=== PATIENT | male | born 1995 | race Caucasian/White ===

== ENCOUNTER 2019-12-30 03:12 | Emergency (ER) | payer OTHER ==
[~2019-12-30] VITALS: Ht 177.8 cm; Wt 81.6 kg
[2019-12-30] MEDS ORDERED: PREDNISONE20 M1 PO (04:16)
[2019-12-30] MEDS ORDERED: ULTRACET PO (04:16)
== END 2019-12-30 04:31 | disposition home or self-care (01) ==
LOC: ER 03:12
DX: S60.041A Contusion of right ring finger without damage to nail, initial encounter (principal); S60.221A Contusion of right hand, initial encounter; W22.8XXA Striking against or struck by other objects, initial encounter; Y93.89 Activity, other specified; Y92.89 Other specified places as the place of occurrence of the external cause; Y99.8 Other external cause status